=== PATIENT | male | born 1945 | race Caucasian/White ===

== ENCOUNTER 2022-12-07 10:40 | Emergency (ER) | payer BC ==
[2022-12-07 10:45] VITALS: BP 155/70; PULSE 70; RESP 18; TEMP 97.2; BMI 25.7
[2022-12-07 12:23] LABS: BASO % 1.3 % (0-2.0); EOS % 3.8 % (0-4.5); HEMATOCRIT 39.5 % (35.4-49); HEMOGLOBIN 13.2 GM/dL (11.7-16.9); LYMPH % 19.6 % (8-40); MCH 31.1 pg (25.7-33.7); MCHC 33.4 g/dl (32.0-35.9); MEAN CELL VOLUME 93.1 fl (80-96); MEAN PLT VOLUME 7.8 fl (7.5-11.1); MONO % 6.6 % (3.8-10.2); NEUT % 68.7 % (42.8-82.8); PLATELET COUNT 198 10^3/uL (134-434); RBC 4.25 M/mm3 (4.00-5.60); RDW 14.3 % (11.9-15.9); WHITE BLOOD COUNT 6.4 K/mm3 (4.0-10.0)
[2022-12-07 12:30] LABS: INR 1.02 (0.83-1.09); PROTHROMBIN TIME (PATIENT) 11.7 SEC (9.7-13.0)
[2022-12-07 12:33] LABS: ACTIVATED PTT 28.7 SECONDS (25.2-36.5)
[2022-12-07 12:58] LABS: CALCIUM 9.2 mg/dL (8.5-10.1)
[2022-12-07 13:00] LABS: ALBUMIN 3.8 g/dl (3.4-5.0); BLOOD UREA NITROGEN 13.4 mg/dL (7-18); MAGNESIUM 2.2 mg/dL (1.8-2.4)
[2022-12-07 13:03] LABS: BILIRUBIN,TOTAL 0.5 mg/dL (0.2-1); CREATININE 1.1 mg/dL (0.55-1.3)
[2022-12-07 13:04] LABS: TOT PROT 7.2 g/dl (6.4-8.2)
== END 2022-12-07 14:20 | disposition home or self-care (01) ==
LOC: JER 10:40
DX: K92.2 Gastrointestinal hemorrhage, unspecified (principal)
CPT/HCPCS: 0241U-QW; 36415; 80053; 82272; 83735; 85025; 85610; 85730; 86850; 86900; 86901; 99283-25

== ENCOUNTER 2024-08-03 10:23 | Emergency (ER) | payer OTHER, BC ==
[2024-08-03 10:35] VITALS: BP 142/69; PULSE 71; RESP 18; TEMP 97.5; BMI 31.1
== END 2024-08-03 12:47 | disposition home or self-care (01) ==
LOC: JERFT 10:23
DX: J02.9 Acute pharyngitis, unspecified (principal)
CPT/HCPCS: 87651; 99283-25

== ENCOUNTER 2024-08-28 11:35 | Emergency (ER) | payer OTHER, BC ==
[2024-08-28 11:45] VITALS: BP 137/72; PULSE 83; RESP 16; TEMP 98.2; BMI 31.1
== END 2024-08-28 14:20 | disposition home or self-care (01) ==
LOC: JERFT 11:35
DX: M79.674 Pain in right toe(s) (principal)
CPT/HCPCS: 73660-TC-FY; 99283-25